=== PATIENT | female | born 1975 | race Caucasian/White ===

== ENCOUNTER → 2017-07-17 | Outpatient (CLI) | payer OTHER | LOC: CIMAGING 12:03 | PROVIDERS: ATTEND Podiatrist Foot & Ankle Surgery | DX: M20.11 Hallux valgus (acquired), right foot (principal) | CPT/HCPCS: 73630-PO ==

== ENCOUNTER 2017-07-28 07:28 | Day surgery (SDC) | payer OTHER ==
[2017-07-28] MEDS ORDERED: LR 1,000 ML IV ONE (08:21)
--- NOTE | 2017-07-28 08:38 | PDANEPAE ---
ANE History of Present Illness bunion here for bunionectomy ANE Past Medical History - Cardiovascular History Hx Hypertension: No Hx Arrhythmias: Yes Hx Chest Pain: No Hx Coronary Artery / Peripheral Vascular Disease: No Hx CHF / Valvular Disease: No Hx Palpitations: Yes Cardiovascular History Comment: ATRIAL ARRYTHMIA. BRUGADA SYNDROME/VENTRICULAR ARRYTHMIA. INTERMITTENT PALPITATION OK PAST 6 MONTHS. WOOD ROOM HAND IBIS - Pulmonary History Hx COPD: No Hx Asthma/Reactive Airway Disease: No Hx Recent Upper Respiratory Infection: No Hx Oxygen in Use at Home: No Hx Sleep Apnea: No Sleep Apnea Screening Result - Last Documented: Negative - Neurologic History Hx Cerebrovascular Accident: No Hx Seizures: No Hx Dementia: No - Endocrine History Hx Diabetes: No - Renal History Hx Renal Disorders: No - Liver History Hx Hepatic Disorders: No - Neurological & Psychiatric Hx Hx Neurological and Psychiatric Disorders: No - Cancer History Hx Cancer: No - Congenital Disorder History Hx Congenital Disorders: No - GI History Hx Gastrointestinal Disorders: No - Other Health History Other Health History: OLIVIA - Chronic Pain History Chronic Pain: Yes (RT FOOT) - Surgical History Prior Surgeries: . LT BREAST BX ANE Review of Systems Review of Systems: - Exercise capacity METS (RN): 5 METS ANE Patient History - Allergies Allergies/Adverse Reactions: No Known Allergies Allergy (Unverified 07/27/17 17:15) - Home Medications Home Medications: Herbal Drugs DAILY 07/27/17 [Last Taken Unknown] Metoprolol Tartrate PRN 07/27/17 [Last Taken Unknown] - NPO status NPO Status: no food or drink >8 hours NPO Since - Liquids (Date): 07/28/17 NPO Since - Liquids (Time): 05:45 NPO Since - Solids (Date): 07/27/17 NPO Since - Solids (Time): 20:30 - Anes Hx Anes Hx: no prior problems - Smoking Hx Smoking Status: Never smoked - Alcohol Use Alcohol Use: None - Family Anes Hx Family Anes Hx: none Family Hx Anesthesia Complications: NEG ANE Labs/Vital Signs - Vital Signs Blood Pressure: 99/72 Heart Rate: 68 Respiratory Rate: 18 O2 Sat (%): 97 Height: 168.91 cm Weight: 63.503 kg ANE Physical Exam - Airway Neck exam: FROM Mallampati Score: Class 2 Mouth exam: normal dental/mouth exam - Pulmonary Pulmonary: no respiratory distress, clear to auscultation - Cardiovascular Cardiovascular: regular rate and rhythym, no murmur, rub, or gallop - ASA Status ASA Status: II ANE Anesthesia Plan Anesthesia Plan: GA with mask Total IV Anesthesia: Yes
[2017-07-28] MEDS ORDERED: PROPOFOL/EMULSION 500 MG/50 ML BOTTLE IV ONE ×2 (08:43→10:07)
[2017-07-28] MEDS ORDERED: ceFAZolin 1 GM/5 ML SYR ONE (08:49)
[2017-07-28] MEDS ORDERED: LIDOCAINE 2% 100 MG/5 ML SYR ONE (08:49)
[2017-07-28] MEDS ORDERED: BUPIVACAINE 0.5% 30 ML SDV ONE (08:49)
[2017-07-28] MEDS ORDERED: ceFAZolin 2 GM/SWFI 2 GM/20 ML SYR IVP ONE ×2 (09:00→09:14)
[2017-07-28] MEDS ORDERED: LIDOCAINE 2% 5 ML SDV ONE (09:12)
--- NOTE | 2017-07-28 09:15 | PDHPUP ---
History & Physical Update H&P update statement: This history and physical update is based on an assessment of the patient which was completed after admission or registration (within 24 hours), but prior to the surgery/procedure. H&P update: H&P reviewed & patient examined, no change in patient's condition since H&P completed
[2017-07-28] MEDS ORDERED: DEXAMETHASONE 4 MG/ML VIAL ONE (09:51)
[2017-07-28] MEDS ORDERED: NALOXONE HCL 0.4 MG/ML INJ IVP PRN (11:03)
[2017-07-28] MEDS ORDERED: fentaNYL 100 MCG/2 ML INJ IVP PRN (11:03)
[2017-07-28] MEDS ORDERED: HYDROCODONE/APAP 5/325 TAB PO PRN (11:03)
[2017-07-28] MEDS ORDERED: ACETAMINOPHEN 500 MG TAB PO PRN (11:03)
[2017-07-28] MEDS ORDERED: OXYCODONE/APAP 5/325 TAB PO PRN (11:03)
[2017-07-28] MEDS ORDERED: ONDANSETRON 4 MG/2 ML VIAL IVP PRN (11:13)
[2017-07-28] MEDS ORDERED: ONDANSETRON DISINTEGRATING 4 MG TAB PO PRN (11:13)
--- NOTE | 2017-07-28 11:24 | POSTOPPROG ---
Post Op Note Date of Operation: 07/28/17 Surgeon: Destini Buckley Anesthesiologist: Dr. Luque Anesthesia: IV Sedation Pre-op Diagnosis: Right foot Hallux valgus Post-op Diagnosis: Right foot Hallux valgus Indication: Painful bunion right foot Procedure: Right foot Modified Lay, Latisha, Jared bunionectomy Inf/Abcess present in the surg proc area at time of surgery?: No Depth: Deep Incisional (Fascial) EBL: Minimal Complications: None
[2017-07-28 11:50] VITALS: RESP 16; TEMP 98.1
[2017-07-28 12:05] VITALS: PULSE 51
[2017-07-28 12:46] VITALS: BP 120/76; O2SAT 99
--- NOTE | 2017-07-28 13:13 | POSTANESTH ---
Post Anesthetic Evaluation Cardiovascular Status: Normal, Stable, Similar to Pre-Op Cond Respiratory Status: Normal, Stable, Similar to Pre-op Cond. Level of Consciousness/Mental Status: Can Participate in Eval, Alert and Oriented Pain Control: Adequate, Prn Tx Ordered Nausea/Vomiting Control: Adequate, Prn Tx Ordered Complications Possibly Related to Anesthesia: None Noted
--- NOTE | 2017-07-28 18:42 | GOP ---
[f rep st] OPERATIVE REPORT DATE OF OPERATION: 07/28/2017 SURGEON: Destini Buckley DPM ANESTHESIA: Local with monitored anesthesia care. ANESTHESIOLOGIST: Dr. Luque. PREOPERATIVE DIAGNOSIS: Right foot hallux abductovalgus deformity. POSTOPERATIVE DIAGNOSIS: Right foot hallux abductovalgus deformity. PROCEDURE PERFORMED: 1. Right foot modified Lay bunionectomy. 2. Right foot chevron bunionectomy. 3. Right foot Jared bunionectomy. FINDINGS: ESTIMATED BLOOD LOSS: Minimal. DESCRIPTION OF PROCEDURE: Under mild sedation, the patient was brought into the operating room and p laced on the operating table in supine position. Following IV sedation, local anesthesia was obtaine d about the right foot using 20 mL of a 1:1 mixture 0.5% Marcaine plain and 2% lidocaine plain. The foot was then scrubbed, prepped, and draped in the usual aseptic manner. A sterile pneumatic ankle t ourniquet was placed about the right ankle. The foot was exsanguinated and tourniquet inflated to 22 5 mmHg. Attention was then directed to the 1st metatarsophalangeal joint where an incision was made medial an d parallel to the tendon of the extensor hallucis longus. The incision was deepened through subcutan eous tissue with care taken to identify and retract all vital neurovascular structures. All bleeders were cauterized as necessary. An inverted L-type capsulotomy was then performed over the 1st metata rsophalangeal joint. The incision was deepened through the periosteum, and the periosteum and capsul e were reflected medially and laterally to expose the 1st metatarsal head at the operative site. The medial eminence was resected utilizing an oscillating bone saw. A lateral release was then performe d, releasing the adductor hallucis from its attachment at the base of the proximal phalanx. The late ral contraction hallux was noted to be reduced. At this point, a 0.045 inch K-wire was then inserted from medial to lateral across the 1st metatarsal head to serve as an axis guide. A chevron osteotom y was then performed through the 1st metatarsal metaphyseal region with the arms pointed dorsal/proxi mal and plantar/proximal. The dorsal arm was made longer to accommodate internal fixation. The 1st metatarsal head was then shifted laterally and impacted upon the remaining 1st metatarsal shaft. It was temporarily fixated with two 0.045 inch K-wires. Following standard AO principles and techniques , two Synthes 2.7 cortical screws were placed across the osteotomy site with excellent compression no audi. The temporary fixation was removed. The remaining medial bone shelf was resected with the osci llating bone saw. All rough edges were smoothed with a bur. The wound was irrigated with copious st erile saline and Ancef irrigation. The periosteum and capsule were repaired with 3-0 Vicryl. At this point, it was decided to perform an Jared bunionectomy. The incision was lengthened distally over the great toe and periosteum reflected medially and laterally. A medially based wedge was remov ed from the base of the proximal phalanx. It was then fixated with the staple. Good position and fi xation were noted. This was evaluated under fluoroscopy and found to be in good position. The wound was then irrigated with copious sterile saline and Ancef irrigation. The periosteum and capsule wer e repaired with 3-0 Vicryl. Redundant medial capsule was resected as necessary. The subcuticular la keisha was repaired with 4-0 Monocryl and skin with 4-0 Prolene in running subcuticular suture technique . Mastisol, Steri-Strips, Xeroform, 4 x 4 gauze, Han, and cast padding were applied. The tourniqu et was deflated at 72 minutes. Prior to dressing application, 1 mL dexamethasone phosphate was infil trated about the 1st metatarsophalangeal joint. The patient was then transferred to the recovery room with vital signs stable and vascular status int act. Following a period of postoperative monitoring, the patient will be discharged home. Advised t o ice and elevate her foot. She is advised to keep the dressing clean, dry, and intact. She is weig htbearing as tolerated in the walking boot. INJECTABLES: Preop injection of 20 mL of a 1:1 mixture of 0.5% Marcaine plain and 2% lidocaine plain . Postop injection of 18 mL of 0.5% Marcaine plain. 1 mL dexamethasone phosphate 4 mg/mL. MATERIALS: Synthes 2.7 cortical screws x2 in the 1st metatarsal. Synthes speed staple in the hallux proximal phalanx. HEMOSTASIS: Pneumatic ankle tourniquet at 225 mmHg for 72 minutes. /[id number]/MODL
== END 2017-07-28 12:05 | disposition home or self-care (01) ==
LOC: FSGY 07:28
PROVIDERS: ATTEND Podiatrist Foot & Ankle Surgery
PROC: 0Q8N0ZZ Division of Right Metatarsal, Open Approach (ICD-10-PCS; principal; 2017-07-28 09:00)
PROC: 0QBN0ZZ Excision of Right Metatarsal, Open Approach (ICD-10-PCS; principal; 2017-07-28 09:00)
PROC: 0QSN0ZZ Reposition Right Metatarsal, Open Approach (ICD-10-PCS; principal; 2017-07-28 09:00)
DX: M20.11 Hallux valgus (acquired), right foot (principal); M20.41 Other hammer toe(s) (acquired), right foot; M77.41 Metatarsalgia, right foot
CPT/HCPCS: C1713; J0690; J1100; J2001; J2704

== ENCOUNTER → 2017-08-23 | Outpatient (CLI) | payer OTHER | LOC: CIMAGING 11:53 | PROVIDERS: ATTEND Podiatrist Foot & Ankle Surgery | DX: Z47.89 Encounter for other orthopedic aftercare (principal); Z98.890 Other specified postprocedural states | CPT/HCPCS: 73630-PO ==

== ENCOUNTER → 2017-09-13 | Outpatient (CLI) | payer OTHER | LOC: CIMAGING 11:46 | PROVIDERS: ATTEND Podiatrist Foot & Ankle Surgery | DX: Z09 Encounter for follow-up examination after completed treatment for conditions other than malignant neoplasm (principal); Z98.890 Other specified postprocedural states | CPT/HCPCS: 73630-PO ==

== ENCOUNTER → 2018-12-13 | Outpatient (CLI) | payer OTHER | LOC: BMCIMAGING 09:07 ==